=== PATIENT | female | born 1950 | race Two or more races ===

== ENCOUNTER 2024-04-09 17:20 | Emergency (ER) | payer OTHER ==
[~2024-04-09] VITALS: Ht 152.4 cm; Wt 59.0 kg
[2024-04-09] MEDS ORDERED: IBUPROFEN 600 MG TABLET ONE (18:56)
[2024-04-09] MEDS: IBUPROFEN 600 MG TABLET PO ONE (18:58)
[2024-04-09 21:53] VITALS: BP 124/82; TEMP 98.6; O2SAT 98
== END 2024-04-09 21:53 | disposition home or self-care (01) ==
LOC: ER 18:06
DX: S82.034A Nondisplaced transverse fracture of right patella, initial encounter for closed fracture (principal); R07.81 Pleurodynia; M25.551 Pain in right hip; M25.552 Pain in left hip; I10 Essential (primary) hypertension; W01.0XXA Fall on same level from slipping, tripping and stumbling without subsequent striking against object, initial encounter; Y93.89 Activity, other specified; Y92.89 Other specified places as the place of occurrence of the external cause; Y99.8 Other external cause status
CPT/HCPCS: 71100-TC; 72170-TC; 73564-TC